=== PATIENT | female | born 1940 | race African-American/Black ===

== ENCOUNTER → 2017-11-01 | Outpatient (CLI) | payer OTHER | LOC: RAD 10:28 | DX: R92.8 Other abnormal and inconclusive findings on diagnostic imaging of breast (principal) ==

== ENCOUNTER → 2017-11-16 | Outpatient (CLI) | payer OTHER ==
--- NOTE | ~2017-11-16 | 2DMMODE ---
[facility] [address] [place] [address] 2 D/M-MODE ECHOCARDIOGRAM Name: THOMASCARLOS Room #: REG COUNTS INCLUDE 234 BEDS AT THE [facility]#: [id number] Admission: 11/16/17 Attend Phys: Abdulkadir Gómez MD Discharge: Date of : 40 Date of Service: 11/16/17 1428 Report #: [id number] THIS REPORT FOR: //name// APPROVED REPORT Study performed: 11/16/2017 13:29:32 EXAM: Comprehensive 2D, Doppler, and color-flow Echocardiogram Patient Location: Echo lab Status: routine BSA: 2.09 HR: 64 bpm BP: 136/76 mmHg Other Information Study Quality: Good Indications Congestive Heart Failure CAD Hypertension/HDD 2D Dimensions RVDd: 35.48 mm LVEF(%): 37.87 (>50%) IVSd: 15.51 (7-11mm) LVOT Diam: 22.66 (18-24mm) LVDd: 51.04 mm PWd: 15.51 (7-11mm) Ascending Ao: 33.39 (22-36mm) LVDs: 41.66 (25-40mm) Aortic Root: 35.59 mm IVC: 9.00 mm Kauffman's LVEF: 37.87 % Volumes Left Atrial Volume (Systole) Single Plane 4CH: 23.28 mL Single Plane 2CH: 48.26 mL LA ESV Index: 20.00 mL/m2 Aortic Valve AoV Peak Seven.: 1.06 m/s AO Peak Gr.: 4.46 mmHg LVOT Max P.65 mmHg LVOT Max V: 0.81 m/s LETTY Vmax: 3.10 cm2 Mitral Valve E/A Ratio: 0.6 [facility] [address] [place] [address] 2 D/M-MODE ECHOCARDIOGRAM Name: THOMASCARLOS Room #: [facility]#: [id number] Admission: 11/16/17 Attend Phys: Abdulkadir Gómez MD Discharge: Date of : 40 Date of Service: 11/16/17 1428 Report #: [id number] MV Decel. Time: 221.88 ms MV E Max Seven.: 0.53 m/s MV A Seven.: 0.83 m/s MV PHT: 64.35 ms IVRT: 155.71 ms Pulmonary Valve PV Peak Seven.: 1.17 m/s PV Peak Gr.: 5.44 mmHg Pulmonary Vein P Vein S: 0.50 m/s P Vein A: 0.54 m/s P Vein D: 0.42 m/s P Vein A Dur.: 117.6 msec P Vein S/D Ratio: 1.19 Tricuspid Valve RAP Estimate: 5.00 mmHg Left Ventricle The left ventricle is normal size. Paradoxical septal motion consistent with conduction abnormality. Mild concentric left ventricular hypertrophy. Left ventricular systolic function is mild to moderately decreased. LVEF is 40-45%. Mild diastolic dysfunction is present (impaired relaxation pattern). Right Ventricle Right ventricle is at the upper limits of normal. The right ventricular systolic function is normal. Atria The left atrium size is normal. The right atrium size is normal. Aortic Valve The aortic valve is normal in structure. No aortic regurgitation is present. There is no aortic valvular stenosis. Mitral Valve Mitral valve leaflets are thickened. Mild mitral regurgitation. No evidence of mitral valve stenosis. Tricuspid Valve The tricuspid valve is normal in structure. Trace tricuspid regurgitation. Unable to assess PA pressure. Pulmonic Valve The pulmonary valve is normal in structure. Trace to mild pulmonic [address] [address] 2 D/M-MODE ECHOCARDIOGRAM Name: THOMASCARLOS Room #: REG COUNTS INCLUDE 234 BEDS AT THE [facility]#: [id number] Admission: 11/16/17 Attend Phys: Abdulkadir Gómez MD Discharge: Date of : 40 Date of Service: 11/16/17 1428 Report #: [id number] regurgitation. Great Vessels The aortic root is normal in size. IVC is normal in size and collapses >50% with inspiration. Pericardium There is no pericardial effusion. <Conclusion> The left ventricle is normal size. Mild concentric left ventricular hypertrophy. Left ventricular systolic function is mild to moderately decreased. Paradoxical septal motion consistent with conduction abnormality. Mild diastolic dysfunction is present (impaired relaxation pattern). The left atrium size is normal. There is no aortic valvular stenosis. Mild mitral regurgitation. <ELECTRONICALLY SIGNED> By: Abdulkadir Gómez MD 11/16/17 1428 1428 1428 Abdulkadir Gómez MD /INF
== END ==
LOC: CV 10-26 08:32
DX: I42.9 Cardiomyopathy, unspecified (principal); I25.10 Atherosclerotic heart disease of native coronary artery without angina pectoris; I10 Essential (primary) hypertension; I50.9 Heart failure, unspecified; I51.7 Cardiomegaly; I34.0 Nonrheumatic mitral (valve) insufficiency

== ENCOUNTER → 2018-06-19 | Outpatient (CLI) | payer OTHER | LOC: RAD 10:31 | DX: N60.02 Solitary cyst of left breast (principal); N64.4 Mastodynia; R92.8 Other abnormal and inconclusive findings on diagnostic imaging of breast; I11.0 Hypertensive heart disease with heart failure; I50.9 Heart failure, unspecified; I25.10 Atherosclerotic heart disease of native coronary artery without angina pectoris ==

== ENCOUNTER → 2018-11-26 | Outpatient (CLI) | payer OTHER | LOC: RAD 02:03 | DX: Z12.31 Encounter for screening mammogram for malignant neoplasm of breast (principal) ==

== ENCOUNTER 2019-02-16 03:56 | Emergency (ER) | payer OTHER ==
[~2019-02-16] VITALS: Ht 170.2 cm; Wt 97.5 kg
[2019-02-16] MEDS ORDERED: ASPIR 8181 MG PO (04:28)
[2019-02-16] MEDS ORDERED: LASIX 40 MG TAB40 M2 PO (04:29)
[2019-02-16 04:55] LABS: HEMOGLOBIN 12.1 gm/dL (12.0-15.0); MCH 25.9 pg (26.0-34.0); MCHC 33.6 g/dL (28.0-37.0); RBC 4.68 mil/uL (4.20-5.00); WBC 6.4 thou/uL (4.0-11.0)
[2019-02-16 04:57] LABS: CALCIUM 9.1 mg/dL (8.5-10.1); CREATININE 1.2 mg/dL (0.6-1.0); POTASSIUM 3.7 mmol/L (3.5-5.1)
[2019-02-16] MEDS ORDERED: MOBIC15 MG PO (06:01)
[2019-02-16 06:19] VITALS: BP 143/61
== END 2019-02-16 06:19 | disposition home or self-care (01) ==
LOC: ER 03:56
PROVIDERS: Emergency Medicine
DX: R25.2 Cramp and spasm (principal); E66.9 Obesity, unspecified; Z68.33 Body mass index [BMI] 33.0-33.9, adult; Z88.8 Allergy status to other drugs, medicaments and biological substances; Z90.710 Acquired absence of both cervix and uterus

== ENCOUNTER → 2019-03-25 | Outpatient (CLI) | payer OTHER ==
[~2019-03-25] MED LIST: ASPIR 8181 MG PO; LASIX 40 MG TAB40 M2 PO; MOBIC15 MG PO
== END ==
LOC: ULTRA 12:34
DX: R25.2 Cramp and spasm (principal); M79.661 Pain in right lower leg; M79.662 Pain in left lower leg

== ENCOUNTER → 2019-08-26 | Outpatient (CLI) | payer OTHER | LOC: ULTRA 09:06 | DX: N64.4 Mastodynia (principal); R92.8 Other abnormal and inconclusive findings on diagnostic imaging of breast ==

== ENCOUNTER → 2020-03-31 | Outpatient (CLI) | payer OTHER ==
[~2020-03-31] MED LIST changes: +ACCUPRIL40 MG PO; +CARVEDILOL12.5 MG PO; +TYLENOL325 M1 PO
== END ==
LOC: BC 08:29
PROVIDERS: ATTEND Neuromusculoskeletal Medicine & OMM
DX: N60.02 Solitary cyst of left breast (principal); N64.89 Other specified disorders of breast

== ENCOUNTER → 2020-04-20 | Outpatient (CLI) | payer OTHER ==
[~2020-04-20] MED LIST changes: +CARVEDILOL3.125 MG PO; +COUMADIN 1MG TAB1 M1 PO; +LISINOPRIL2.5 MG PO; +PROTONIX40 M1 PO
== END ==
LOC: SJCVCIMAG 03-24 16:31
PROVIDERS: ATTEND Internal Medicine Cardiovascular Disease
DX: I08.8 Other rheumatic multiple valve diseases (principal); R94.31 Abnormal electrocardiogram [ECG] [EKG]; I45.4 Nonspecific intraventricular block; I42.9 Cardiomyopathy, unspecified; R60.9 Edema, unspecified; I25.10 Atherosclerotic heart disease of native coronary artery without angina pectoris; I11.0 Hypertensive heart disease with heart failure; M79.89 Other specified soft tissue disorders; I50.9 Heart failure, unspecified; Z79.899 Other long term (current) drug therapy

== ENCOUNTER 2020-04-21 14:35 | Inpatient (IN) | payer OTHER ==
[~2020-04-21] VITALS: Ht 170.2 cm; Wt 91.2 kg
--- NOTE | ~2020-04-21 | O ---
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 OPERATIVE PROCEDURE DONE: 1. Laparoscopic right hemicolectomy. 2. Fluorescein angiographic evaluation with ICG. OPERATING SURGEON: Hood Roach M.D. INDICATIONS FOR THE PROCEDURE: The patient is a 79-year-old pleasant female who presented with features of anemia and DVT and PE, further evaluation showed a hepatic flexure mass in the colon. CT scan showed local enlargement of lymph node as well. The patient was advised laparoscopic right hemicolectomy. The patient showed understanding and agreed to proceed. DESCRIPTION OF PROCEDURE: After explaining to the patient in detail and informed consent was obtained, the patient was identified in the preoperative holding area. The patient was transferred to the operating room and was placed in supine position. Sequential compressive devices were placed for DVT prophylaxis. Preoperative antibiotics were given. After induction of anesthesia, the abdomen was prepped and draped in a sterile fashion. Through a left upper quadrant 1 cm incision and using Optiview technique, peritoneal cavity was entered and pneumoperitoneum was created. Thereafter, under direct vision, another 5 mm trocar was placed in the left lower quadrant and another 12 mm trocar was placed through a supraumbilical incision, another 5 mm trocar was placed in the right flank. On initial inspection, I did not see any features of metastatic disease on the liver. I started to mobilize the proximal transverse colon along the avascular plane; however, I had difficulty getting into the right plane in this area. Therefore, I proceeded with mobilization of the right colon along the white line of Toldt. I then mobilized the cecum, ascending colon and I medialized it as much as possible that the peritoneal attachments of the terminal ileum was also dissected free. I continued dissection of the hepatic flexure and then proximally and then in the transverse colon, part of [address] [address] OPERATIVE REPORT Name: THOMASCARLOS Room #: 219-P ADM IN M.R.#: [id number] Admission: 04/21/20 Attend Phys: Aki Chilel MD Discharge: Date of : 40 Report #: [id number] the colon in this area appeared to show some adhesions very close to the duodenum. I did not see any obvious features to suggest tumor infiltration. I continued to dissect this area carefully. The duodenum was identified and care was taken not to injure this. I continued to mobilize the transverse colon up to the middle part of the transverse colon. So, once this was completed, I then extended the midline incision by another 4 more centimeters and a wound protector was placed. The right colon was exteriorized and the colon was then transected to the right of the middle colic artery using a KANDY blue load stapler. Another blue load stapler was used to divide the terminal ileum approximately about 5 cm proximal to the ileocecal junction. The intervening mesentery was then divided using EnSeal at the root of the mesentery. I then performed a [id number] anastomosis of the small bowel to the transverse colon using a KANDY blue load stapler. The common enterocolostomy was also closed using another blue load stapler, a corner suture was placed at the staple line. Absolute hemostasis was ensured. Anesthesia then injected ICG to evaluate the blood flow to the anastomosis and on fluorescein imaging, the patient was noted to have good blood flow to the anastomotic area. Once again after ensuring adequate hemostasis, the abdomen was then closed with #1 PDS for the fascia. Skin was closed with 4-0 Monocryl for all the incisions. Dermabond was applied. The patient was stable at the end of the procedure. The patient was awoken from anesthesia and was transferred to the recovery room in stable condition. ESTIMATED BLOOD LOSS: Minimal. CONDITION OF THE PATIENT: Stable. FLUIDS GIVEN: Per anesthesia notes. SPECIMEN SENT: Right hemicolectomy specimen. COMPLICATIONS: None. ANESTHESIA: General anesthesia. By: 0913 Hood Roach MD /nt
[~2020-04-21 14:35] MED LIST changes: -ACCUPRIL40 MG PO; -CARVEDILOL12.5 MG PO; -CARVEDILOL3.125 MG PO; -COUMADIN 1MG TAB1 M1 PO; -LISINOPRIL2.5 MG PO; -PROTONIX40 M1 PO; -TYLENOL325 M1 PO
[2020-04-21 14:57] VITALS: BP 139/56
[2020-04-21 15:51] LABS: HEMOGLOBIN 6.7 gm/dL (12.0-15.0)
[2020-04-21 15:53] LABS: BASOPHILS 0.7 % (0.0-2.0); EOSINOPHILS 4.2 % (0.0-3.0); HEMATOCRIT 20.4 % (37.0-47.0); LYMPHOCYTES 34.1 % (24.0-44.0); MCV 63.6 fL (80.0-100.0); MONOCYTES 6.6 % (1.0-8.0); PLATELET COUNT 388 thou/uL (150-400); POLYS 54.4 % (36.0-66.0); RDW 18.5 % (10.5-14.5); WBC 5.5 thou/uL (4.0-11.0)
[2020-04-21 15:59] LABS: CALCIUM 8.6 mg/dL (8.5-10.1); POTASSIUM 4.6 mmol/L (3.5-5.1)
[2020-04-21 16:04] LABS: ALBUMIN 2.8 g/dL (3.4-5.0); DIRECT BILIRUBIN 0.1 mg/dL (<0.1-0.2); TOTAL BILIRUBIN 0.6 mg/dL (0.2-1.0); TOTAL PROTEIN 7.1 g/dL (6.4-8.2)
[2020-04-21 16:06] LABS: APTT 20.3 Seconds (24.5-32.8); INR 1.1; PROTIME 10.7 Seconds (9.3-11.4)
[2020-04-21 16:10] LABS: ANISOCYTOSIS 1+; MICROCYTES 2+; POLYCHROMASIA OCCASIONAL
[2020-04-21 16:11] LABS: HYPOCHROMASIA 2+; TARGET CELLS OCCASIONAL
[2020-04-21 16:13] LABS: SCHISTOCYTES RARE
[2020-04-21] MEDS ORDERED: CARVEDILOL12.5 MG PO (16:25)
[2020-04-21] MEDS ORDERED: ACCUPRIL40 MG PO (16:26)
[2020-04-21 17:36] LABS: % SATURATION 6 % (20-39); IRON 20 ug/dL (50-170); TIBC 331 ug/dL (250-450)
[2020-04-21 18:03] LABS: FERRITIN 13 ng/mL (8-252)
[2020-04-21 20:10] VITALS: BP 125/46
[2020-04-21 21:46] VITALS: BP 145/75
[2020-04-21 22:23] VITALS: BP 137/58; BP 149/45
[2020-04-22] VITALS: BP 144/46
--- NOTE | 2020-04-22 00:41 | NUR ---
ADMIT: PT NEW ADMIT AROUND 2139 FROM ED. PT ALERT AND ORIENTED. INITIAL VITALS STABLE. PT DENIES CHEST PAIN, NAUSEA, VOMITING OR DIARRHEA. PT HAS LOW EXTREMITIES EDEMA , MORE SWOLLEN TO THE RIGHT. PT WAS TOLD SHE HAD DVTs IN THE RIGHT LEG AT HER PCP OFFICE. DENIES PAIN, TIGHTNESS, NUMBNESS OR TINGLING IN THAT LEG. PT ALSO HAS PE ACCORDING TO CTA BUT ORDERS TO "DO NOT ANTICOAGULATE" CLARIFIED WITH THE REGISTERED NURSE POST PARTUM Ofe LONG DUE TO POSSIBLE BLEEDING, HGB 6.7. PT WAS TRANSFUSED 1 UNIT, OF PRBC, NO REACTION NOTED. TO RECHECK CBC WITH AM RUN. ADMISSION COMPLETE. CARE PLAN ACTIVATED, PT IS LEGALLY BLIND AND MOST CONSENTS WERE OBTAINED BY A VERBAL ORDER. ORIENTED TO THE CALL LIGHT SYSTEM. EDUCATED ON FALL PRECAUTION AND NEED CALL FOR ASSISTANCE. ALL QUESTIONS ANSWERED. ANY OTHER NEEDED CONSENT FORMS TO BE SIGNED BY SON. NO SKIN ISSUE NOTED, OTHER THAN KELOID TO THE LEFT UPPER ARM. NO OTHER CONCERNS AT THIS TIME. WILL CONTINUE TO FOLLOW POC. PROMOTE SAFETY.
[2020-04-22 04:00] VITALS: BP 120/52
[2020-04-22 06:03] LABS: RDW 20.5 % (10.5-14.5); WBC 6.4 thou/uL (4.0-11.0)
[2020-04-22 06:04] LABS: HEMATOCRIT 22.9 % (37.0-47.0); HEMOGLOBIN 7.6 gm/dL (12.0-15.0); MCH 21.7 pg (26.0-34.0); MCHC 33.1 g/dL (28.0-37.0); MCV 65.6 fL (80.0-100.0); PLATELET COUNT 376 thou/uL (150-400)
[2020-04-22 06:19] LABS: CALCIUM 8.4 mg/dL (8.5-10.1); MAGNESIUM 2.4 mg/dL (1.8-2.4); POTASSIUM 3.9 mmol/L (3.5-5.1)
--- NOTE | 2020-04-22 07:43 | NUR ---
ASSUMED CARE OF PT AT SHIFT CHANGE. PT IS A&OX4, HOME MED RECC TO BE ADDRESSED, PT LEGALLY BLIND, ALL IN FRONT OF HER WITH DIRECTION, SAYS SHE CAN SEE A LITTLE BIT. WALKS WITHOUT ANY ASSITIVE DEVICE, BED REST AND STRONG SLOW DEEP EFFECTIVE BREATHING ENCOURAGED. PT LIVES ALONE, PT IN GOOD SPIRITS. GI CONSULT UNABLE TO REACHED BY PRE PLANNING ADVISOR. ENCOURAGED PT TO USE CALL LIGHT FOR ANY NEEDS. NO SKIN ISSUES. SEE SEPARATE INTERVENTIONS FOR ASSESSMENTS.
[2020-04-22] MEDS ORDERED: TYLENOL325 M1 PO (07:47)
[2020-04-22 08:00] VITALS: BP 154/55
--- NOTE | 2020-04-22 08:22 | EKG ---
[facility] [place] [address] ELECTROCARDIOGRAM REPORT Name: CARLOS GUZMAN Room #: 219-P ADM IN M.R.#: [id number] Admission: 04/21/20 Attend Phys: Aki Chilel MD Discharge: Date of : 40 Report #: [id number] THIS REPORT FOR: cc: Levi Wei Steven F. DO Lundgren, Craig H. MD [facility] ~ THIS REPORT FOR: //name// [facility] Test Date: 2020-04-22 Test Time: 07:58:59 Pat Name: CARLOS GUZMAN Department: Room: 219 P Gender: F High School Counselor: Bryan CHAPARRO : 1940 Requested By: Radha Berry Order Number: [id number] MD: Kayden Escobedo Measurements Intervals Wilson Rate: 68 P: 64 TX: 196 QRS: 11 QRSD: 178 T: 44 QT: 476 QTc: 507 Interpretive Statements Sinus rhythm Left bundle branch block No previous ECG available for comparison Electronically Signed On 04-22-2020 8:21:32 CDT by Kayden Escobedo [email or web address] <ELECTRONICALLY SIGNED> By: Kayden Escobedo MD, [facility] 04/22/20 0821 [id number] Kayden Escobedo MD, [facility] /EPI
[2020-04-22 09:56] LABS: HEMATOCRIT 23.5 % (37.0-47.0); HEMOGLOBIN 7.8 gm/dL (12.0-15.0); MCHC 33.3 g/dL (28.0-37.0); MCV 66.1 fL (80.0-100.0); RBC 3.55 mil/uL (4.20-5.00); RDW 20.6 % (10.5-14.5); WBC 6.2 thou/uL (4.0-11.0)
[2020-04-22 10:53] LABS: ABSOLUTE NEUTROPHILS 3.7 thou/uL (1.4-8.2)
[2020-04-22 10:57] LABS: ANISOCYTOSIS 2+; HYPOCHROMASIA 2+; MICROCYTES 3+
[2020-04-22 12:00] VITALS: BP 133/69
--- NOTE | 2020-04-22 12:22 | NUR ---
STOP HEP GTT 6H PRIOR TO GI PROCEDURE; GI STATES ETA IS 0800 04/23. WILL REPORT TO ONCOMING VERNE[facility]
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
[2020-04-22 15:03] LABS: HEMATOCRIT 24.7 % (37.0-47.0); HEMOGLOBIN 8.1 gm/dL (12.0-15.0); MCH 21.5 pg (26.0-34.0); MCHC 32.9 g/dL (28.0-37.0); MCV 65.5 fL (80.0-100.0); RBC 3.76 mil/uL (4.20-5.00); WBC 6.8 thou/uL (4.0-11.0)
--- NOTE | 2020-04-22 15:21 | HC ---
[facility] [place] [address] CONSULTATION Name: CARLOS GUZMAN Room #: 219-P ADM IN M.R.#: [id number] Admission: 04/21/20 Attend Phys: Aki Chilel MD Discharge: Date of : 40 Report #: [id number] THIS REPORT FOR: cc: Levi Wei,Nael Carr MD ~ CC: Adelita Wei MD REQUESTING PHYSICIAN: Aki Chilel MD REASON FOR CONSULTATION: Anemia. HISTORY OF PRESENT ILLNESS: The patient is a very pleasant 79-year-old female who had seen Dr. Abdulkadir Gómez I believe a day or two ago, was found to have ankle swelling and was found to have a DVT before they began Xarelto. They did a hemoglobin and found that she had a hemoglobin that is low. Here at [place] was found to be 6.7 with an MCV of 63.6. Note that there is prior mild anemia with MCV about 77 years ago. The patient has no prior knowledge of anemia. She denies any bright red blood in her urine or stool. She has not had black tarry stool. She has not had any new dyspepsia. She does have a 15-pound unintentional weight loss, but feels like she is eating normally. No unexplained fevers, chills, nausea or vomiting. Does have the right leg swelling from the clot. No skin rash that she ____. PAST MEDICAL HISTORY: Notable for cardiomyopathy, CHF, legally blind with congenital cataracts, obesity, past history of hysterectomy, corneal transplant. She does not know when her last colonoscopy was. SOCIAL HISTORY: Nonsmoker. Rare but occasional alcohol. No street drugs. IMAGING: Done here at [place] includes the ultrasound showing the acute appearing occlusive thrombus throughout the right popliteal vein with nonocclusive thrombus in the lower right femoral vein, new since 03/25/2019. CTA chest shows the right upper lobe pulmonary embolus. No pleural fluid. Bony structures looked normal. There is some scattered pulmonary nodules with suggested for a 1-year followup. CT abdomen and pelvis has been ordered. LABORATORY DATA: Available include creatinine of 1. Liver functions normal. Albumin 2.8. Iron was 20, TIBC 331, percent iron saturation 6% ____. Baseline coags normal. White count on admission 5.5; hemoglobin was 6.7, currently 7.6 after transfusion. Note that in 01/2019, it was 12.1 and also at that time the [address] [address] CONSULTATION Name: THOMASCARLOS Room #: 219-P [facility] IN M.R.#: [id number] Admission: 04/21/20 Attend Phys: Aki Chilel MD Discharge: Date of : 40 Report #: [id number] MCV was 77. RDW 20.5, platelets 376. Differential nonacute. UA not available. Ferritin 13, folate 29.3. Vitamin B12 of 991. PHYSICAL EXAMINATION: GENERAL: The patient appears her stated age. VITAL SIGNS: Height is 5 feet 7 inches, 170.2 cm. Weight 205 pounds or 92.98 kilograms. Blood pressure is 120/52, O2 sat 98%, respirations 19, pulse 67, afebrile. MOOD: The patient is alert and pleasant. NEUROLOGIC: She is blind. Moving extremities. Speech and thought pattern normal. LYMPHATICS: No enlarged lymph nodes in the supraclavicular, cervical, or axillary region. ABDOMEN: Nontender, no masses. EXTREMITIES: Without clubbing, cyanosis. There is some slight swelling on the right ankle and lower leg. ASSESSMENT AND PLAN: 1. Iron deficiency anemia. Minimal oral iron treatment. No blood loss. No prior endoscopy. Have to be concerned with possible ulcer or cancer. GI has been consulted. They will probably perform upper and lower endoscopy. We will need to see when they feel comfortable doing so with PE and DVT present. We will order for IV iron. 2. Unexplained weight loss. We will order CT abdomen and pelvis. Could also have occult malignancy causing clot. 3. Right DVT and right pulmonary emboli. We need to balance treatment of clot for benefit versus danger from bleeding. Hemoccult pending. If Hemoccult negative, we will consider weight-based heparin without a bolus until the patient has had endoscopy, may also need to consider IVC filter. I have talked with Dr. Michael Nagel. We will also wait to hear from GI if they have questions. 4. Obesity. Calories as needed. 5. Nonischemic cardiomyopathy. Diuretics and CATHERINE inhibitors and Coreg per others. Maintenance issues per others. We will follow. <ELECTRONICALLY SIGNED> By: Nael Bryan MD 04/22/20 1521 0837 [id number] Nael Bryan MD /nt
[2020-04-22 17:00] VITALS: BP 126/64
[2020-04-22 19:30] VITALS: BP 143/75
[2020-04-23] VITALS (10 sets, daily range): BP systolic 97–155; BP diastolic 42–78
--- NOTE | 2020-04-23 01:50 | NUR ---
PT'S APTT RESULTS RECEIVED AT 0100HRS. APTT = 54. NO CHANGE TO THE DOSAGE PER HEPARIN PROTOCOL.
[2020-04-23 01:55] LABS: HEMATOCRIT 26.3 % (37.0-47.0); HEMOGLOBIN 8.4 gm/dL (12.0-15.0); MCH 21.3 pg (26.0-34.0); MCHC 32.1 g/dL (28.0-37.0); MCV 66.3 fL (80.0-100.0); RBC 3.97 mil/uL (4.20-5.00); RDW 20.5 % (10.5-14.5); WBC 8.5 thou/uL (4.0-11.0)
[2020-04-23 02:02] LABS: CALCIUM 8.7 mg/dL (8.5-10.1); CREATININE 1.1 mg/dL (0.6-1.0); POTASSIUM 3.8 mmol/L (3.5-5.1)
--- NOTE | 2020-04-23 03:16 | NUR ---
PT'S APTT AT 0100HRS WAS 54 ON HEPARIN GTT 11.2ML/HR SINCE 6 HRS PRIOR (LAST APTT CHECK) [facility] HAD BEEN REPORTED 154 AT THE END OF THE PREVIOUS SHIFT. ORDER IN PLACE TO HOLD HEPARIN DRIP AT 0200HRS WHICH IS 6HRS BEFORE A SCHEDULED COLONOSCOPY AT 0830HRS. HOSPITALIST CYBER SECURITY ENGINEER NOTIFIED OF THE HEPARIN HOLD ORDER AND THE 0100HRS APTT OF 54. NO NEW ORDERS FOLLOW THE ORDERS IN PLACE, PER CYBER SECURITY ENGINEER
--- NOTE | 2020-04-23 05:58 | NUR ---
PT A&O X4 ABLE TO MAKE BASIC NEEDS KNOWN. DENIES PAIN. PT IS LEGALLY BLIND. PT WAS ON HEPARIN THAT WAS PUT ON HOLD AT 0200HRS PER ORDERS FOR A COLONOSCOPY SCHEDULED AT 0830HRS. PT WAS CLOSELY MONITORED AND HAS CONTINUED TO DENY PAIN, CP OR SOA UP TO THIS TIME. SBA WITH TRANSFERS AND DOES CALL APPROPRIATELY. HAS A DVT AND PE. BED ALARMS ON. HAS BEEN DRINKING GO LYTELY FOR COLONOSCOPY. PT HAS APTT RECHECK SCHEDULED AT 0700HRS.
--- NOTE | 2020-04-23 06:50 | NUR ---
LAB CONTACTED REGARDING RESULTS FOR OCCULT STOOL SAMPLE COLLECTED YESTERDAY DURING DAY SHIFT. LAB STAFF NOTIFIED PHYSICIAN WILL BE NEEDING RESULTS THIS AM. LAB STAFF STATED RESULTS WILL BE COMPLETED WITHIN NXT HALF HR
[2020-04-23 10:38] LABS: HEMATOCRIT 23.8 % (37.0-47.0); HEMOGLOBIN 7.8 gm/dL (12.0-15.0); MCH 21.8 pg (26.0-34.0); MCHC 32.8 g/dL (28.0-37.0); MCV 66.3 fL (80.0-100.0); RBC 3.58 mil/uL (4.20-5.00); RDW 20.4 % (10.5-14.5); WBC 8.2 thou/uL (4.0-11.0)
[2020-04-23 15:53] LABS: HEMATOCRIT 25.1 % (37.0-47.0); HEMOGLOBIN 8.4 gm/dL (12.0-15.0); MCHC 33.4 g/dL (28.0-37.0); MCV 65.9 fL (80.0-100.0); RBC 3.81 mil/uL (4.20-5.00); RDW 20.3 % (10.5-14.5); WBC 8.6 thou/uL (4.0-11.0)
--- NOTE | 2020-04-23 19:28 | NUR ---
PT CARE ASSUMED AT 0700. ASSESSMENTS CHARTED. MEDICATION CHARTED. PT HEPARIN ON HOLD SINCE 0200 PER NIGHT [facility] VOGEL. PT HAD EGD/ COLONOSCOPY; 9 POLYPS REMOVED; DISCOVERED MASS. PT HAD IVC FILTER PLACEMENT IN AFTERNOON. [address] HARDY CONTACTED TO DETERMINE IF THEY WANT HEPARIN TO REMAIN ON HOLD.
[2020-04-24] VITALS (7 sets, daily range): BP systolic 112–135; BP diastolic 49–58
--- NOTE | 2020-04-24 03:37 | NUR ---
ASSUMED PT CARE AROUND 1900. PT CARE BACK FROM IR DURING SHIFT CHANGE. S/P IR IVC FILTER PLACEMENT. BEDREST X 3HRS PER IR. VSS. MISSED DOSE OF PROTONIX GIVEN PER CELL INSPECTOR ORDER. L GROIN DRESSING C,D,I. PT VOIDED WITH MINIMUM ASSIST AFTER BEDREST AND DIET RESUMED PER CELL INSPECTOR ORDER WITHOUT ANY NAUSEA/VOMITING. HEPARIN WAS HOLD PER GI PHYSICIAN. DENIES ANY PAIN FROM PRECEDURE. FREQUENT VISUAL CHECK RENDERED PER PT'S DECREASED SIGHT. NO S/S ACUTE DISTRESS NOTED OR REPORTED AT THIS TIME. WILL CONT TO MONITOR FOR ANY CHANGES IN CONDITION.
[2020-04-24 05:08] LABS: HEMATOCRIT 23.3 % (37.0-47.0); HEMOGLOBIN 7.6 gm/dL (12.0-15.0); MCH 21.8 pg (26.0-34.0); MCHC 32.8 g/dL (28.0-37.0); MCV 66.4 fL (80.0-100.0); RBC 3.51 mil/uL (4.20-5.00); RDW 20.8 % (10.5-14.5); WBC 7.8 thou/uL (4.0-11.0)
[2020-04-24 05:12] LABS: CALCIUM 8.3 mg/dL (8.5-10.1); CREATININE 1.2 mg/dL (0.6-1.0); POTASSIUM 3.8 mmol/L (3.5-5.1)
[2020-04-24 09:42] LABS: HEMATOCRIT 25.3 % (37.0-47.0); HEMOGLOBIN 8.5 gm/dL (12.0-15.0); MCH 22.2 pg (26.0-34.0); MCHC 33.5 g/dL (28.0-37.0); MCV 66.1 fL (80.0-100.0); RBC 3.83 mil/uL (4.20-5.00)
[2020-04-24 16:19] LABS: HEMATOCRIT 25.1 % (37.0-47.0); HEMOGLOBIN 8.5 gm/dL (12.0-15.0); MCH 22.8 pg (26.0-34.0); MCHC 33.9 g/dL (28.0-37.0); RBC 3.75 mil/uL (4.20-5.00); RDW 21.4 % (10.5-14.5); WBC 8.5 thou/uL (4.0-11.0)
--- NOTE | 2020-04-24 17:09 | NUR ---
PT CARE ASSUMED AT 0700. ASSESSMENTS CHARTED. MEDICATION CHARTED. PT IS BLIND. EGD / COLONOSCOPY / IVC FILTER PLACEMENT 04/23/20. HEMICOLECTOMY PLANNED FOR MONDAY. PT USES BSC. PT DENIES PAIN.
[2020-04-25 04:45] VITALS: BP 118/50
--- NOTE | 2020-04-25 07:39 | NUR ---
ASSUME CARE 1900. PT/VITALS STABLE. DENIES ANY PAIN. TOLERATES ACTIVITY WELL. ASSESSMENT CHARTED. PROGRESSING WELL WITH POC. NO DISTRESS NOTED THROUGH THE NIGHT, ADEQAUTE REST NOTED. PLAN IS POSSIBLE HEMICHOLECTOMY ON MONDAY. WILL CONTINUE TO MONITOR AND FOLLOW WITH POC
[2020-04-25 13:02] VITALS: BP 112/63
[2020-04-25 16:38] VITALS: BP 108/48
--- NOTE | 2020-04-25 17:47 | NUR ---
ASSESSMENT CHARTED. PT ALERT AND ORIENTED. PLEASANT AND COOPERATIVE WITH CARES. DENIES HAVING PAIN OR DISCOMFORT. SON AT THE BEDSIDE. NO CARDIAC OR RESPIRATORY DISTRESS NOTED. WILL CONTINUE TO MONITOR.
[2020-04-25 19:28] VITALS: BP 111/56
[2020-04-26 04:45] VITALS: BP 119/41
[2020-04-26 05:28] LABS: HEMATOCRIT 24.4 % (37.0-47.0); HEMOGLOBIN 7.9 gm/dL (12.0-15.0); MCH 21.7 pg (26.0-34.0); MCHC 32.3 g/dL (28.0-37.0); MCV 67.1 fL (80.0-100.0); RBC 3.64 mil/uL (4.20-5.00); RDW 21.9 % (10.5-14.5); WBC 9.6 thou/uL (4.0-11.0)
[2020-04-26 05:41] LABS: ALBUMIN 2.7 g/dL (3.4-5.0); CALCIUM 8.2 mg/dL (8.5-10.1); CREATININE 1.1 mg/dL (0.6-1.0); PHOSPHORUS 3.4 mg/dL (2.5-4.9); POTASSIUM 3.7 mmol/L (3.5-5.1)
--- NOTE | 2020-04-26 07:52 | NUR ---
ASSUME CARE 1900. PT/VITALS STABLE. DENIES ANY PAIN. TOLERATES ACTIVITY WELL. UP WITH STB ASSIST. SSESSMETN CHARTED. PROGRESSING WELL WITH POC. SR ON MONITOR. NO DISTRESS/ADEQUATE REST NOTED THROUGH THE NIGHT. PLAN IS NPO AFTER MIDNIGHT FOR POSSIBLE HEMICOLECTOMY ON MONDAY WITH BIOPSY. WILL CONTINUE TO MONITOR AND FOLLOW WIHT POC
[2020-04-26 08:12] VITALS: BP 119/48
[2020-04-26 12:30] VITALS: BP 113/45
[2020-04-26 16:40] VITALS: BP 121/54
--- NOTE | 2020-04-26 17:21 | NUR ---
ASSESSMENT CHARTED. PT ALERT AND ORIENTED. VSS. DENIED HAVING PAIN OR DISCOMFORT. ON HEPARIN DRIP. NPO AFTER MIDNIGHT FOR SURGERY IN AM. NO CONCERNS AT THIS TIME. WILL CONTINUE TO MINOTOR.
[2020-04-26 20:06] VITALS: BP 109/54
[2020-04-27 04:37] VITALS: BP 120/59
[2020-04-27 08:00] VITALS: BP 123/61
--- NOTE | 2020-04-27 09:27 | NUR ---
ASSUME CARE 1900. PT/VITALS STABLE. DENIES ANY PAIN. TOLERATES ACTIVITY WELL. ON HEPARIN DRIP TO D/C IN AM. MNO DISTRESS NOTED. PROGRESSING WELL WITH POC. PLAN IS NPO AFTER MN FOR HEMICOLECTOMY TODAY. WILL CONTINUE TO MONITOR AND FOLLOW WITH POC
[2020-04-27 13:00] VITALS: BP 114/50
[2020-04-27 17:00] VITALS: BP 124/54
--- NOTE | 2020-04-27 17:06 | PATH ---
[facility] [address] [address] PATHOLOGY RPT PROCEDURE Name: JESSICA GUZMAN Room #: 219-P ADM IN M.R.#: [id number] Admission: 04/21/20 Date of : 40 Discharge: Report #: [id number] Path Case #: [id number] [facility] Accession Number: [id number] . 01 Material submitted: . PART A: stomach - ANTRAL BIOPSY R/O H. PYLORI PART B: hepatic flexure - BIOPSY OF HEPATIC FLEXURE MASS PART C: cecum - CECAL POLYP PART D: colon - ASCENDING COLON POLYP X3. Modifiers: ascending PART E: colon - TRANSVERSE COLON POLYP X5. Modifiers: transverse PART F: colon - SIGMOID COLON POLYP. Modifiers: sigmoid . 01 Clinician provided ICD-10: I82.401 I26.99 . 01 Clinical history: . Anemia, weight loss, abnormal CT Hiatal hernia, hepatic flexure mass, colon polyps . 02 Diagnosis: A. Stomach, "antral," endoscopic biopsy: - Gastric antral mucosa with features of chronic, active gastritis. - Negative for intestinal metaplasia, dysplasia, and malignancy. - POSITIVE for Helicobacter pylori organisms. . B. Large bowel, "hepatic flexure mass," endoscopic biopsy: - ADENOCARCINOMA, MODERATELY DIFFERENTIATED. - Please see comment. . C. Large bowel, "cecal polyp," endoscopic biopsy: - Tubular adenoma. - Negative for high grade dysplasia and malignancy. . D. Large bowel, "ascending colon polyp x3," endoscopic biopsy; - Tubular adenoma. - Negative for high grade dysplasia and malignancy. . E. Large bowel, "transverse colon polyp x5," endoscopic biopsy: - Tubular adenoma. - Negative for high grade dysplasia and malignancy. . F. Large bowel, "sigmoid colon polyp," endoscopic biopsy: - Tubular adenoma. - Negative for high grade dysplasia and malignancy. . A message regarding the diagnosis of specimen B is left for Lorie, at the office of Dr. Tj Riley, the morning of 04/27/2020. [address] [address] PATHOLOGY RPT PROCEDURE Name: JESSICA GUZMAN COTY Room #: 219-P [facility].#: [id number] Admission: 04/21/20 Date of : 40 Discharge: Report #: [id number] Path Case #: [id number] . Specimen B (hepatic flexure mass) is co-reviewed by Dr. Pat Johnston, who concurs with the diagnosis. . [facility] 04/27/2020 1645 Local . 02 Electronically signed: . Jo Ann Salas MD, Pathologist NPI- [id number] . 01 Gross description: . A. The specimen is received in formalin labeled "Pola, Jessica, antral BX rule out H. pylori" and consists of multiple fragments of quinones tissue measuring 0.5 x 0.3 x 0.2 cm in aggregate which are entirely submitted in A1. . B. The specimen is received in formalin labeled "Pola, Jessica, hepatic flexure mass biopsy" and consists of multiple fragments of pink-quinones tissue measuring 1.2 x 0.5 x 0.2 cm aggregate which are entirely submitted in B1. . C. The specimen is received in formalin labeled "Pola, Jessica, cecal polyp" and consists of multiple fragments of quinones tissue measuring 0.5 x 0.3 x 0.2 cm in aggregate which are entirely submitted in C1. . D. The specimen is received in formalin labeled "Pola, Jessica, ascending colon polyps x3" and consists of multiple fragments of quinones tissue measuring 0.8 x 0.5 x 0.3 cm in aggregate which are entirely submitted in D1. . E. The specimen is received in formalin labeled "Pola, Jessica, transverse colon polyp x5" and consists of multiple polypoid segments of pink-quinones tissue measuring 1.3 x 1.2 x 0.3 cm in aggregate which are entirely submitted in E1. . F. The specimen is received in formalin, labeled "Pola, Jessica, sigmoid colon polyps" and consists of a fragment of quinones tissue measuring 0.3 x 0.3 x 0.3 cm which is entirely submitted in F1. (FERNANDEZ; 04/23/2020) JFQ/LETY 04/23/2020 1642 Local . 02 Microscopic: . Immunohistochemical Stain Result: . Helicobacter pylori - (block A1) - Positive for shyanne shaped bacteria . 02 Pathologist provided ICD-10: K31.9, C18.3, D12.0, D12.2, D12.3, D12.5, B96.[address] [address] PATHOLOGY RPT PROCEDURE Name: JESSICA GUZMAN Room #: 219-P ADM IN M.R.#: [id number] Admission: 04/21/20 Date of : 40 Discharge: Report #: [id number] Path Case #: [id number] . 02 CPT . [id number], [id number], [id number], [id number], [id number], [id number], [id number] Specimen Comment: A courtesy copy of this report has been sent to [phone] Specimen Comment: [id number], , Specimen Comment: Report sent to ,DR PARKS,DR TINEO / DR NIEVES Performed at: [address] [facility] [address], [place] [id number] MD Pato Julian MD Phone: [phone] Performed at: [address] [facility] [address] [id number] MD Keesha Bar MD Phone: [phone]
--- NOTE | 2020-04-27 19:29 | NUR ---
ASSESSMENT CHARTED. PT ALERT AND ORIENTED. HAD LAPAROSCOPIC RIGHT HEMICOLECTOMY. 4 INCISION WITH DERMABOND C/D/I. PRN PAIN MED GIVEN WITH PARTIAL RELIEF. ACD'S IN PLACE. WILL CONTINUE TO MONITOR.
[2020-04-27 20:15] VITALS: BP 117/45
[2020-04-28 00:32] VITALS: BP 112/84
[2020-04-28 03:15] VITALS: BP 105/45
--- NOTE | 2020-04-28 04:50 | NUR ---
ASSESSMENT DOCUMENTED.PT BEEN RESTING IN NO ACUTE DISTRESS,LEGALLY BLIND.VSS.SR W/BBB ON MONITOR.S/P LAP HEMICOLECTOMY.INCISIONS TO ABD INTACT,CLOSED WITH DERMABOND.C/O PAIN OF 4-5/10 ON PAIN SCALE,INCISIONS AREA.PAIN MEDS GIVEN WITH RELIEF.TANJA DD.TURNED AND REPOSITIONED IN BED.PT DENIES FURTHER NEEDS AT THIS TIME.WILL CONTINUE TO MONITOR.
[2020-04-28 04:59] LABS: HEMATOCRIT 23.3 % (37.0-47.0); HEMOGLOBIN 7.4 gm/dL (12.0-15.0); MCH 21.9 pg (26.0-34.0); MCHC 31.8 g/dL (28.0-37.0); MCV 68.7 fL (80.0-100.0); RBC 3.39 mil/uL (4.20-5.00); RDW 24.2 % (10.5-14.5); WBC 11.6 thou/uL (4.0-11.0)
[2020-04-28 05:21] LABS: CALCIUM 8.3 mg/dL (8.5-10.1); CREATININE 1.2 mg/dL (0.6-1.0)
[2020-04-28 08:00] VITALS: BP 115/48
[2020-04-28 16:31] VITALS: BP 125/53
--- NOTE | 2020-04-28 16:47 | NUR ---
Patient would benefit from HH at tx. She has no preference of an agency if HH ordered. Verified address. Son plans to stay with patient at dc for a few days. [email or web address] following.
--- NOTE | 2020-04-28 17:39 | NUR ---
ASSUMED CARE AT SHIFT CHANGE, ALERT AND ORIENTED X4. VSS AND UP WALKING WITH SON. HAS POSITIVE BS,ABD IS SOFTER NOW, AND SHE DENIES PASSING GAS AT THIS TIME. TOLERATED ICE CHIPS WELL, DENIES ANY NAUSEA AND WILL CONTINUE WITH POC.
[2020-04-28 20:00] VITALS: BP 119/49
[2020-04-29 04:40] VITALS: BP 105/69; BP 142/61
[2020-04-29 05:52] LABS: HEMATOCRIT 24.4 % (37.0-47.0); HEMOGLOBIN 7.8 gm/dL (12.0-15.0); MCH 22.3 pg (26.0-34.0); MCHC 32.1 g/dL (28.0-37.0); MCV 69.4 fL (80.0-100.0); RBC 3.51 mil/uL (4.20-5.00); RDW 25.5 % (10.5-14.5); WBC 8.9 thou/uL (4.0-11.0)
[2020-04-29 06:56] LABS: CALCIUM 8.6 mg/dL (8.5-10.1); CREATININE 1.3 mg/dL (0.6-1.0); POTASSIUM 3.6 mmol/L (3.5-5.1)
[2020-04-29 08:00] VITALS: BP 146/65
--- NOTE | 2020-04-29 08:02 | NUR ---
ASSUMED PT CARE AT 1900. PT IS ALERT AND ORIENTED. NO SIGN OF DISTRESS NOTED IN PT. PT IS STABLE. PT VERBALIZES PAIN IN ABDOMEN. PT IS LAYING IN BED RESTING COMFORTABLY. ASSESSMENT COMPLETED AND DOCUMENTED. FALL PRECAUTION IN PLACE. SCHEDULED MEDS ADMINISTERED TO PT. TOLERATED PO INTAKE. PT IS STABLE THROUGH THE NIGHT. CONTINUE TO MONITOR PT. NOT FURTHER NEEDS REQUESTED AT THIS TIME.
[2020-04-29 12:01] VITALS: BP 146/65
--- NOTE | 2020-04-29 13:02 | NUR ---
[facility] is accepting [place] for [place] care [place].
--- NOTE | 2020-04-29 15:41 | NUR ---
ASSUMED CARE OF PT THIS AFTERNOON. VSS, SR ON TELE. PT C/O ABD PAIN SCHEDULED PAIN MEDICATIONS CONTROLLING PAIN WELL. PT TOLERATED CLEAR LIQUID DIET. PT HAS BEEN UP SITTING IN THE CHAIR. PT SON AT BEDSIDE. PT SLOWLY PROGRESING TOWRADS POC GOALS.
[2020-04-29 20:30] VITALS: BP 119/62
[2020-04-30 04:30] LABS: HEMOGLOBIN 8.4 gm/dL (12.0-15.0); MCH 22.4 pg (26.0-34.0); MCHC 32.4 g/dL (28.0-37.0); MCV 69.2 fL (80.0-100.0); RBC 3.76 mil/uL (4.20-5.00); RDW 25.4 % (10.5-14.5); WBC 8.6 thou/uL (4.0-11.0)
[2020-04-30 04:45] VITALS: BP 126/55
[2020-04-30 05:08] LABS: INR 1.2; PROTIME 12.2 Seconds (9.3-11.4)
[2020-04-30 05:13] LABS: CALCIUM 8.6 mg/dL (8.5-10.1); CREATININE 1.2 mg/dL (0.6-1.0); POTASSIUM 3.9 mmol/L (3.5-5.1)
--- NOTE | 2020-04-30 05:28 | NUR ---
PT ALERT AND ORIENTED. VSS. DENIES CHEST PAIN, NAUSEA OR VOMITNG. BOWELS SOUNDS HYPOACTIVE, SMALL BOWEL MOVEMENT OVERNIGHT. PT REPORTS SHE IS BARELY PASSING GAS. ABDOMEN SOFT NONE TENDER. ABDOMINAL LAP SITES CLEAN AND INTACT. NO OTHER CONCERNS. WILL CONTINUE TO MONITOR.
[2020-04-30 07:00] VITALS: BP 131/67
[2020-04-30 11:30] VITALS: BP 125/57
[2020-04-30 16:30] VITALS: BP 137/62
--- NOTE | 2020-04-30 18:31 | NUR ---
ASSUMED CARE AT SHIFT CHANGE, ASSESSMENT DOCUMENTED, AND VSS. SCHEDULE TYLENOL GIVEN AND PATIENT DENIES ANY PAIN OR DISCOMFORT. TOLERATED REGULAR DIET TODAY. WALKED X4 WITH HER SON. PROGRESSING TOWARDS GOALS AND WILL CONTINUE WITH POC.
[2020-04-30 19:58] VITALS: BP 126/61
[2020-05-01 04:45] VITALS: BP 126/57
--- NOTE | 2020-05-01 05:04 | NUR ---
PT ALERT AND ORIENTED. DENIES NAUSEA VOMITING AND DIARRHEA. VSS. NO CHEST PAIN REPORTED. BOWEL SOUNDS ACTIVE AND PT HAD A BOWEL MOVEMENT. ABDOMEN STILL DISTENDED BUT WITHOUT ANY DISCOMFORT. WILL CONTINUE TO MONITOR
[2020-05-01 05:39] LABS: PROTIME 20.1 Seconds (9.3-11.4)
[2020-05-01 05:47] LABS: HEMATOCRIT 25.8 % (37.0-47.0); HEMOGLOBIN 8.2 gm/dL (12.0-15.0); MCHC 31.9 g/dL (28.0-37.0); MCV 68.9 fL (80.0-100.0); RBC 3.75 mil/uL (4.20-5.00); RDW 25.7 % (10.5-14.5); WBC 7.7 thou/uL (4.0-11.0)
[2020-05-01 05:58] LABS: CALCIUM 8.5 mg/dL (8.5-10.1); CREATININE 0.9 mg/dL (0.6-1.0); POTASSIUM 3.7 mmol/L (3.5-5.1)
[2020-05-01 08:00] VITALS: BP 129/72
--- NOTE | 2020-05-01 11:35 | NUR ---
PT ASSESSED, RESTING IN BED, VSS, REIVEWED POC, PT VERBALIZED UNDERSTANDING, HER "HOME NURSE" CAME IN AND STATED THAT HE'LL HELP HER WITH ALL HER NEEDS TODAY. CONTINUING HOURLY ROUNDS, MEDS GIVEN AFTER BEING REVIEWED WITH PT, WILL MONITOR
--- NOTE | 2020-05-01 12:15 | NUR ---
Followup: pt with excellent appetite, eating 100%. New wts showing 201 lb. Change nutrition status to low risk
[2020-05-01 13:00] VITALS: BP 123/49
--- NOTE | 2020-05-01 13:08 | PATH ---
[facility] [place] [address] [address] [place] [address] PATHOLOGY RPT PROCEDURE Name: JESSICA ESCALONA Room #: 219-P ADM IN M.R.#: [id number] Admission: 04/21/20 Date of : 40 Discharge: Report #: [id number] Path Case #: [id number] [facility] Accession Number: [id number] . 01 Material submitted: . colon - RIGHT HEMICOLECTOMY. Modifiers: right . 01 Clinical history: . Right colon mass . 02 Diagnosis: Small and large bowel "right hemicolectomy": - ULCERATED ADENOCARCINOMA, MODERATELY DIFFERENTIATED (pT3). - NEGATIVE proximal, distal, and mesenteric margins. - Please see cancer summary below. . Vermiform appendix: - No significant pathologic alteration. . Lymph nodes "mesenteric" (14), excision: - Negative for metastatic carcinoma. . . CANCER CASE SUMMARY . Procedure - Right hemicolectomy . Tumor Site - Hepatic flexure . Tumor Size - 5.5 x 3.9 cm . Macroscopic Tumor Perforation - Not identified . Histologic Type - Adenocarcinoma . Histologic Grade - G2 (moderately differentiated) . Tumor Extension - Tumor invades through the muscularis propria into pericolorectal tissue . Margins - All margins are uninvolved by invasive carcinoma . Proximal Margin - Uninvolved by invasive carcinoma, high-grade dysplasia (tumor 15 cm from proximal margin) . Distal Margin - Uninvolved by invasive carcinoma and high-grade dysplasia (tumor 11 cm from distal margin) . [facility] [address] [place] [address] PATHOLOGY RPT PROCEDURE Name: JESSICA ESCALONA Room #: 219-P ADM IN M.R.#: [id number] Admission: 04/21/20 Date of : 40 Discharge: Report #: [id number] Path Case #: [id number] Mesenteric Margin - Uninvolved by invasive carcinoma (tumor 2 cm from mesenteric margin) . Treatment Effect - No known presurgical therapy . Lymphovascular Invasion - Not identified . Perineural Invasion - Not identified . Tumor Deposits - None identified . Regional Lymph Nodes - - Number of lymph nodes involved - 0 - Number of lymph nodes examined - 14 . TNM Descriptors - - Primary tumor (pT3) - (tumor invades through muscularis propria into pericolorectal tissue) . - Regional lymph nodes (pN0) - (no regional lymph node metastasis) . (REFUGIO:gardenia; 05/01/2020) S 05/01/2020 1214 Local . 02 Comment: The case is seen in co-review by Dr. Ioana Johnston, who concurs with the above diagnosis. (MLK:gardenia; 05/01/2020) . 02 Electronically signed: . Jo Ann Salas MD, Pathologist NPI- [id number] . 01 Gross description: . The specimen is received in formalin, labeled "Jessica Escalona, right hemicolectomy" and consists of a right hemicolectomy specimen with terminal ileum (9.7 cm in length and 2.2 cm in diameter), ascending colon (24.0 cm in length and up to 5.6 cm in diameter), appendix (8.0 cm in length and up to 0.5 cm in diameter), and pericolic fat up to 8.5 cm. Omentum is adherent at the distal margin is omentum measuring 8.4 x 3.0 cm. Both margins have a staple line. The serosa is pink-quinones with thin creeping adhesions focally. There is black tattoo ink, 6.0 cm from the distal margin corresponding to a palpable mass. Opening the specimenreveals a green quinones terminal ileum mucosa with prominent Peyer's patches. . The ileocecal valve is unremarkable. The cecum is pink-quinones with no gross lesions. The ascending colon displays a pink-quin[place] [address] PATHOLOGY RPT PROCEDURE Name: JESSICA ESCALONA Room #: 219-P ADM IN M.R.#: [id number] Admission: 04/21/20 Date of : 40 Discharge: Report #: [id number] Path Case #: [id number] with rolled borders measuring 5.5 x 3.9 cm that is 11.0 cm from distal margin, greater than 15 cm from proximal margin, and 2.0 cm from the mesenteric margin. Both proximal and distal to the mass are multiple additional pink-quinones polyps which measure up to 0.6 cm. . Also received is a segment of small bowel measuring 3.1 cm in length and 1.4 cm in diameter with a staple line at both margins. A black suture is moted in the serosa. The specimen is held for overnight fixation. (SDY; 04/27/2020) . After overnight fixation, sectioning the mass reveals obliteration of the muscular wall with invasion of the pericolic tissue. The mass also grossly approaches the free serosa (inked blue). The appendix is pink-quinones revealing a dilated proximal lumen and obliteration of the tip. The omentum reveals no masses or lesions. Present within the pericolic fat are multiple lymph node candidates measuring up to 1.7 cm showing pink-quinones to black tattooed cut surfaces. [employer]igator sections are submitted as follows: . A1: Proximal margin A2: Distal margin A3: Peyer's patches A4: Mesenteric margin (inked black) A5-A6: Mass with possible pericolic invasion A7: Mass to free serosa A8: Polyps distal the mass A9: Polyps proximal mass A10: Appendix A11: Omentum A12: Additionally received segment of GI tissue A13: 1 trisected lymph node A14: 1 trisected lymph node A15-A16: 1 serially sectioned lymph node A17: 1 trisected lymph node A18: 1 trisected lymph node A19: 2 bisected lymph nodes, one inked black A20: 2 bisected lymph nodes, one inked black A21: One bisected (inked black) and one trisected lymph node A22: 2 intact lymph nodes (SDY; 04/28/2020) SYU/SYU 05/01/2020 1214 Local . 02 Pathologist provided ICD-10: C18.3 . 02 CPT . [id number] Specimen Comment: A courtesy copy of this report has been sent to [phone], [address] [place] [address] PATHOLOGY RPT PROCEDURE Name: JESSICA ESCALONA Room #: 219-P ADM IN M.R.#: [id number] Admission: 04/21/20 Date of : 40 Discharge: Report #: [id number] Path Case #: [id number] Specimen Comment: [phone], , Specimen Comment: Report sent to ,DR NIEVES,DR PARKS / DR TINEO Performed at: 01 [facility] [address] [id number] MD Pato Julian MD Phone: [phone] Performed at: 02 [facility] [address] [id number] MD Duglas Flores MD Phone: [phone]
[2020-05-01] MEDS ORDERED: CARVEDILOL3.125 MG PO (13:41)
[2020-05-01] MEDS ORDERED: PROTONIX40 M1 PO (13:42)
[2020-05-01] MEDS ORDERED: LISINOPRIL2.5 MG PO (13:42)
[2020-05-01] MEDS ORDERED: COUMADIN 1MG TAB1 M1 PO (13:43)
--- NOTE | 2020-05-01 14:06 | NUR ---
PT DISCHARGING TODAY TO HOME WITH [facility] FAXED DC ORDERS/SUMMARY RECEIVED CONFIRMATION AND SPOKE WITH ASHLEY IN ADM SHE RECEIVED ORDERS AND WILL NOTIFY PT TIME OF VISITS.
--- NOTE | 2020-05-01 14:28 | NUR ---
patient discharging home today with [facility]. Offered cab ride home but patient and mom prefer lift service. Reviewed HH care no further needs.
--- NOTE | 2020-05-01 16:18 | NUR ---
PT LEFT WITH "SON" AND TOOK ALL BELONGINGS AFTER IV AND TELE WERE REMOVED, DC INSTRUCTIONS AND MEDS WERE REVIEWED WITH BOTH PT AND HER SON. THEY BOTH VERBALIZED UNDERSTANDING AND WILL FOLLOW UP WITH YOSSI PADRON AND MEDS.
== END 2020-05-01 16:00 | disposition home health service (06) | DRG 329 ==
LOC: ER 14:35 → 2N 16:48 → EROBS 16:48 → 2N 21:12
PROVIDERS: Emergency Medicine; Hospitalist; Internal Medicine Hematology & Oncology; Nurse Practitioner; Surgery; ADMIT Internal Medicine Cardiovascular Disease; ATTEND Internal Medicine
DX: C18.9 Malignant neoplasm of colon, unspecified (principal); I26.99 Other pulmonary embolism without acute cor pulmonale; E43 Unspecified severe protein-calorie malnutrition; I50.33 Acute on chronic diastolic (congestive) heart failure; I42.9 Cardiomyopathy, unspecified; I82.401 Acute embolism and thrombosis of unspecified deep veins of right lower extremity; B58.89 Toxoplasmosis with other organ involvement; D50.9 Iron deficiency anemia, unspecified; Z20.828 Contact with and (suspected) exposure to other viral communicable diseases; E66.9 Obesity, unspecified; H54.8 Legal blindness, as defined in USA; K63.5 Polyp of colon; K44.9 Diaphragmatic hernia without obstruction or gangrene; K57.30 Diverticulosis of large intestine without perforation or abscess without bleeding; I11.0 Hypertensive heart disease with heart failure; K64.8 Other hemorrhoids; G47.00 Insomnia, unspecified; K29.70 Gastritis, unspecified, without bleeding; Z79.899 Other long term (current) drug therapy; Z68.31 Body mass index [BMI] 31.0-31.9, adult; Z98.49 Cataract extraction status, unspecified eye; Z94.7 Corneal transplant status; Z79.82 Long term (current) use of aspirin; Z90.710 Acquired absence of both cervix and uterus
CPT/HCPCS: 10081; 50010; 50101; 50249; 50386; 50455; 50525; 50555; 50558; 51489; 51708; 51712; 52265; 52266; 54118; 56526; 56528; 57092; 58115; 62110; 62900; 70005

== ENCOUNTER → 2020-05-06 | Outpatient (CLI) | payer OTHER ==
[~2020-05-06] MED LIST changes: +ACCUPRIL40 MG PO; +CARVEDILOL12.5 MG PO; +CARVEDILOL3.125 MG PO; +COUMADIN 1MG TAB1 M1 PO; +LISINOPRIL2.5 MG PO; +PROTONIX40 M1 PO; +TYLENOL325 M1 PO
== END ==
LOC: SJCVC 10:45
PROVIDERS: ATTEND Internal Medicine Cardiovascular Disease
DX: Z51.81 Encounter for therapeutic drug level monitoring (principal); I42.9 Cardiomyopathy, unspecified; I10 Essential (primary) hypertension; I25.10 Atherosclerotic heart disease of native coronary artery without angina pectoris; Z68.34 Body mass index [BMI] 34.0-34.9, adult; Z79.01 Long term (current) use of anticoagulants

== ENCOUNTER → 2020-05-11 | Outpatient (CLI) | payer OTHER | LOC: SJCVC 10:55 | PROVIDERS: ATTEND Internal Medicine Cardiovascular Disease | DX: Z51.81 Encounter for therapeutic drug level monitoring (principal); I10 Essential (primary) hypertension; E78.00 Pure hypercholesterolemia, unspecified; I25.10 Atherosclerotic heart disease of native coronary artery without angina pectoris; Z79.01 Long term (current) use of anticoagulants; Z79.899 Other long term (current) drug therapy ==

== ENCOUNTER → 2020-05-13 | Outpatient (CLI) | payer OTHER | LOC: SJCVC 11:27 | PROVIDERS: ATTEND Internal Medicine Cardiovascular Disease | DX: R94.31 Abnormal electrocardiogram [ECG] [EKG] (principal); I44.7 Left bundle-branch block, unspecified; I42.8 Other cardiomyopathies; I11.0 Hypertensive heart disease with heart failure; I50.9 Heart failure, unspecified; I82.431 Acute embolism and thrombosis of right popliteal vein; I26.99 Other pulmonary embolism without acute cor pulmonale; D64.9 Anemia, unspecified; Z79.899 Other long term (current) drug therapy ==

== ENCOUNTER → 2020-06-10 | Outpatient (CLI) | payer OTHER | LOC: SJCVC 10:42 | PROVIDERS: ATTEND Internal Medicine Cardiovascular Disease | DX: D50.9 Iron deficiency anemia, unspecified (principal) ==

== ENCOUNTER → 2020-08-04 | Outpatient (CLI) | payer OTHER ==
[~2020-08-04] MED LIST changes: +SLOW FE142 MG PO; +XARELTO15 MG PO; +XARELTO20 MG PO
== END ==
LOC: SJCVCIMAG 13:25
PROVIDERS: ATTEND Nuclear Medicine Nuclear Cardiology
DX: I82.431 Acute embolism and thrombosis of right popliteal vein (principal); I82.411 Acute embolism and thrombosis of right femoral vein; I25.10 Atherosclerotic heart disease of native coronary artery without angina pectoris; E78.00 Pure hypercholesterolemia, unspecified; I10 Essential (primary) hypertension; C18.3 Malignant neoplasm of hepatic flexure; Z79.899 Other long term (current) drug therapy; Z95.828 Presence of other vascular implants and grafts; Z86.711 Personal history of pulmonary embolism; Z86.718 Personal history of other venous thrombosis and embolism

== ENCOUNTER → 2020-08-05 | Outpatient (CLI) | payer OTHER ==
[~2020-08-05] VITALS: Ht 170.2 cm; Wt 93.9 kg
[2020-08-05 07:18] VITALS: BP 134/66
== END | disposition home or self-care (01) ==
LOC: CATH 06:24
PROVIDERS: ATTEND Nuclear Medicine Nuclear Cardiology
DX: Z45.89 Encounter for adjustment and management of other implanted devices (principal); I11.0 Hypertensive heart disease with heart failure; I50.9 Heart failure, unspecified; E78.5 Hyperlipidemia, unspecified; Z98.890 Other specified postprocedural states; Z79.899 Other long term (current) drug therapy; Z85.038 Personal history of other malignant neoplasm of large intestine; Z86.711 Personal history of pulmonary embolism; Z79.01 Long term (current) use of anticoagulants

== ENCOUNTER → 2020-08-11 | Outpatient (CLI) | payer OTHER | LOC: SJCVC 09:46 | PROVIDERS: ATTEND Internal Medicine Cardiovascular Disease | DX: I45.4 Nonspecific intraventricular block (principal); I49.8 Other specified cardiac arrhythmias; I10 Essential (primary) hypertension; I42.9 Cardiomyopathy, unspecified; R94.39 Abnormal result of other cardiovascular function study; D64.9 Anemia, unspecified; Z86.711 Personal history of pulmonary embolism; Z86.718 Personal history of other venous thrombosis and embolism ==

== ENCOUNTER → 2021-02-10 | Outpatient (CLI) | payer OTHER | LOC: SJCVC 12:09 | PROVIDERS: ATTEND Internal Medicine Cardiovascular Disease | DX: R94.31 Abnormal electrocardiogram [ECG] [EKG] (principal); I44.7 Left bundle-branch block, unspecified; I42.9 Cardiomyopathy, unspecified; D64.9 Anemia, unspecified; R60.9 Edema, unspecified; I11.0 Hypertensive heart disease with heart failure; I50.9 Heart failure, unspecified; I25.10 Atherosclerotic heart disease of native coronary artery without angina pectoris; E78.00 Pure hypercholesterolemia, unspecified; Z98.890 Other specified postprocedural states; Z79.899 Other long term (current) drug therapy; Z86.718 Personal history of other venous thrombosis and embolism ==

== ENCOUNTER → 2021-04-06 | Outpatient (CLI) | payer OTHER | LOC: SJCVCIMAG 08:03 | PROVIDERS: ATTEND Nuclear Medicine Nuclear Cardiology | DX: I70.201 Unspecified atherosclerosis of native arteries of extremities, right leg (principal); I25.10 Atherosclerotic heart disease of native coronary artery without angina pectoris; I82.531 Chronic embolism and thrombosis of right popliteal vein; I11.9 Hypertensive heart disease without heart failure; I43 Cardiomyopathy in diseases classified elsewhere; C18.3 Malignant neoplasm of hepatic flexure; E78.00 Pure hypercholesterolemia, unspecified; Z79.01 Long term (current) use of anticoagulants; Z79.899 Other long term (current) drug therapy ==

== ENCOUNTER → 2021-06-14 | Outpatient (CLI) | payer OTHER ==
[~2021-06-14] MED LIST changes: +CENTRUM SILVER1 EAC5 PO; +PROTONIX40 M2 PO; +ZESTRIL2.5 MG PO
== END ==
LOC: LAB 09:32
PROVIDERS: ATTEND Student in an Organized Health Care Education/Training Program
DX: Z01.812 Encounter for preprocedural laboratory examination (principal); Z20.822 Contact with and (suspected) exposure to COVID-19

== ENCOUNTER → 2021-06-15 | Outpatient (CLI) | payer OTHER ==
[~2021-06-15] VITALS: Ht 170.2 cm; Wt 97.1 kg
== END | disposition home or self-care (01) ==
LOC: GI → BC → GI 06:44
PROVIDERS: ATTEND Internal Medicine Gastroenterology
DX: Z12.11 Encounter for screening for malignant neoplasm of colon (principal); Z85.038 Personal history of other malignant neoplasm of large intestine; K57.30 Diverticulosis of large intestine without perforation or abscess without bleeding; K64.8 Other hemorrhoids; I11.0 Hypertensive heart disease with heart failure; I50.9 Heart failure, unspecified; Z98.890 Other specified postprocedural states; Z79.899 Other long term (current) drug therapy; Z98.0 Intestinal bypass and anastomosis status
CPT/HCPCS: 62110; 62900

== ENCOUNTER → 2021-07-12 | Outpatient (CLI) | payer OTHER | LOC: ULTRA 13:47 | PROVIDERS: ATTEND Internal Medicine Hematology & Oncology | DX: I82.411 Acute embolism and thrombosis of right femoral vein (principal); Z86.718 Personal history of other venous thrombosis and embolism ==

== ENCOUNTER → 2021-08-13 | Outpatient (CLI) | payer OTHER | LOC: SJCVCIMAG 08:59 | PROVIDERS: ATTEND Internal Medicine Cardiovascular Disease | DX: I08.8 Other rheumatic multiple valve diseases (principal); I42.9 Cardiomyopathy, unspecified; I10 Essential (primary) hypertension; I25.10 Atherosclerotic heart disease of native coronary artery without angina pectoris; R94.39 Abnormal result of other cardiovascular function study; D64.9 Anemia, unspecified; R60.9 Edema, unspecified; R42 Dizziness and giddiness; R55 Syncope and collapse; E78.00 Pure hypercholesterolemia, unspecified; Z86.718 Personal history of other venous thrombosis and embolism; Z79.899 Other long term (current) drug therapy ==

== ENCOUNTER → 2021-09-06 | Outpatient (CLI) | payer OTHER | LOC: SJCVCIMAG 09-03 11:35 | PROVIDERS: ATTEND Internal Medicine Cardiovascular Disease | DX: I49.3 Ventricular premature depolarization (principal); R00.0 Tachycardia, unspecified; I44.7 Left bundle-branch block, unspecified; I42.9 Cardiomyopathy, unspecified; R60.9 Edema, unspecified; C80.1 Malignant (primary) neoplasm, unspecified; D64.9 Anemia, unspecified; I11.0 Hypertensive heart disease with heart failure; I50.9 Heart failure, unspecified; I25.10 Atherosclerotic heart disease of native coronary artery without angina pectoris; I82.409 Acute embolism and thrombosis of unspecified deep veins of unspecified lower extremity; E78.00 Pure hypercholesterolemia, unspecified; I26.99 Other pulmonary embolism without acute cor pulmonale; Z79.899 Other long term (current) drug therapy ==

== ENCOUNTER → 2021-12-06 | Outpatient (CLI) | payer OTHER | LOC: ULTRA 09:28 | PROVIDERS: ATTEND Family Medicine | DX: R55 Syncope and collapse (principal) ==